=== PATIENT | male | born 1985 | race Caucasian/White ===

== ENCOUNTER 2022-06-28 00:15 | Emergency (ER) | payer MEDICAID ==
[~2022-06-28] VITALS: Ht 190.5 cm; Wt 127.0 kg
[2022-06-28 00:15] VITALS: BP 156/95
--- NOTE | 2022-06-28 00:19 | NUR ---
PT [facility]. TAKEN TO BED 5
--- NOTE | 2022-06-28 00:19 | NUR ---
[place] [facility] AT BEDSIDE.
[2022-06-28] MEDS ORDERED: BACITRACIN OINT 500 UNITS/GM PKT TP ONE (01:25)
[2022-06-28 01:35] LABS: BASOPHILS # (AUTO) 0.1 K/uL (0.00-0.22); BASOPHILS % (AUTO) 0.6 % (0.0-2.0); EOSINOPHILS # (AUTO) 0.1 K/uL (0-0.4); EOSINOPHILS % (AUTO) 0.7 % (0.0-4.0); HEMATOCRIT 48.1 % (36-52); HEMOGLOBIN 16.5 g/dL (12.0-18.0); LYMPHOCYTES # (AUTO) 1.5 K/uL (2.0-11.5); LYMPHOCYTES % (AUTO) 17.1 % (20.5-51.1); MEAN CORPUSCULAR HEMOGLOBIN 30 pg (27-31); MEAN CORPUSCULAR HGB CONC 34 g/dL (33-37); MONOCYTES # (AUTO) 0.7 K/uL (0.8-1.0); MONOCYTES % (AUTO) 8.4 % (1.7-9.3); NEUTROPHILS # (AUTO) 6.4 K/uL (1.8-7.7); NEUTROPHILS % (AUTO) 73.2 % (42.2-75.2); PLATELET COUNT (AUTO) 231 K/uL (140-450); RED BLOOD CELL COUNT(AUTO) 5.53 MIL/uL (4.20-6.10); RED CELL DISTRIBUTION WIDTH 13.1 % (11.6-13.7); WHITE BLOOD COUNT (AUTO) 8.8 K/uL (4.8-10.8)
[2022-06-28 01:43] LABS: ANION GAP 12.6 (8-16); CARBON DIOXIDE 27.2 mmol/L (21-32); CREATININE 0.9 mg/dL (0.6-1.3); POTASSIUM 3.8 mmol/L (3.5-5.1)
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
--- NOTE | 2022-06-28 03:13 | NUR ---
Patient appears to be resting comfortably in bed. Vital Signs within normal limits. Respirations even and unlabored.
--- NOTE | 2022-06-28 03:38 | NUR ---
ATTEMPTED TO OBTIAN URINE . PT SIAD HE DOESNT HAVE TO YET
--- NOTE | 2022-06-28 05:42 | NUR ---
SWABS TAKEN TO LAB
--- NOTE | 2022-06-28 06:17 | NUR ---
GAVE PT WATER UNABLE TO PROVIDE URINE SAMPLE.
--- NOTE | 2022-06-28 06:56 | NUR ---
PT PROVIDE URINE. TOOK TO LAB
[2022-06-28 07:14] LABS: BARBITURATE, URINE NEGATIVE ng/ml (NEG <=200); BENZODIAZEPINE, URINE NEGATIVE ng/mL (NEG <=200); CANNABINOID, URINE POSITIVE ng/mL (NEG <=50); COCAINE, URINE NEGATIVE ng/mL (NEG <=300); OPIATE, URINE NEGATIVE ng/mL (NEG <=2000); PHENCYCLIDINE SCREEN,URINE NEGATIVE ng/mL (NEG <=25)
--- NOTE | 2022-06-28 07:21 | NUR ---
REPORT RECEIVED FROM HAYDEN GRAVES. ASSUMED CARE AT THIS TIME
--- NOTE | 2022-06-28 07:21 | NUR ---
Pt report given to ELY SANCHEZ. Transfer of care at this time.
--- NOTE | 2022-06-28 08:00 | NUR ---
PT OFFERED/ PROVIDED BREAKFAST. PT REFUSED " NOT RIGHT NOW", LEFT AT BEDSIDE
--- NOTE | 2022-06-28 18:18 | NUR ---
PT ON TELEPSYCH CALL FOR EVALUATION
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
--- NOTE | 2022-06-28 19:30 | NUR ---
REPORT GIVEN TO ORTIZ GRAVES. ALL QUESTIONS ANSWERED. TRANSFER OF CARE AT THIS TIME
[2022-06-28] MEDS ORDERED: HYDR-2853 PO (19:37)
[2022-06-28] MEDS ORDERED: CLONIDINE HYDROCHLORIDE 0.1 MG TAB PO ONE (19:40)
[2022-06-28 20:17] VITALS: BP 165/107
== END 2022-06-28 20:17 | disposition home or self-care (01) ==
LOC: MED 00:15
DX: S41.012A Laceration without foreign body of left shoulder, initial encounter (principal); Z20.822 Contact with and (suspected) exposure to COVID-19; Z72.89 Other problems related to lifestyle; W26.0XXA Contact with knife, initial encounter; Y93.89 Activity, other specified; Y92.89 Other specified places as the place of occurrence of the external cause; Y99.8 Other external cause status
CPT/HCPCS: 36415; 80048; 80305; 85025; 87426; 87635; 99285; C9803; G0482